=== PATIENT | female | born 1995 | race Two or more races ===

== ENCOUNTER 2018-08-12 14:20 | Emergency (ER) | payer MEDICAID ==
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
== END 2018-08-12 18:11 | disposition home or self-care (01) ==
LOC: ER 14:20
DX: S00.33XA Contusion of nose, initial encounter (principal); S30.0XXA Contusion of lower back and pelvis, initial encounter; V49.49XA Driver injured in collision with other motor vehicles in traffic accident, initial encounter; Y93.89 Activity, other specified; Y92.410 Unspecified street and highway as the place of occurrence of the external cause; Y99.8 Other external cause status
CPT/HCPCS: 70450-TC; 70486-TC; 72100-TC; 81025-TC; Z7610